=== PATIENT | female | born 1945 | race Caucasian/White ===

== ENCOUNTER 2023-12-23 08:13 | Day surgery (SDC) | payer MEDICARE, OTHER, SELFPAY ==
[2023-12-11 10:33] VITALS: BMI 28.5
--- NOTE | 2023-12-11 14:06 | HPS.HSE ---
Family Physician
-
Family Physician: NOT KNOW UNKNOWN - PT DOES
Chief Complaint
-
Paroxysmal atrial fibrillation.
History of Present Illness
The patient is an 78 year old female presenting today for paroxysmal atrial fibrillation. The patient reports significant palpitations, dyspnea with exertion, lightheadedness, and headaches secondary to this diagnosis. She previously
underwent pulmonary vein isolation in October 2022 for her arrhythmia. She is on current pharmacological therapy with Sotalol. She has been compliant with Eliquis twice a day for oral anticoagulation. She notes that her symptoms associated with her
arrhythmia greatly interfere with her activities of daily living and overall impact her quality of life. She is interested in pursuing pulmonary vein isolation again for further arrhythmia management. She denies any current complaints today such as
chest pain, shortness of breath at rest, nausea, vomiting, diarrhea, dizziness, sore throat, or fever.
Medical History
Past Medical History
Past Medical History: Reports Other
Additional Past Medical History:
1. Paroxysmal atrial fibrillation, status post pulmonary vein isolation 10/2022; pharmacological therapy with Sotalol, oral anticoagulation with Eliquis.
2. Hypertension.
3. Hypercholesterolemia.
4. Coronary artery disease, status post CABG x1 06/2017.
5. Bilateral carotid atherosclerosis without significant stenosis.
6. Nonsustained ventricular tachycardia.
7. Pulmonary hypertension.
8. Severe aortic stenosis, status post aortic valve replacement 06/2017.
9. Venous varicosities, status post varicose vein ligation.
10. Exercise induced asthma.
11. Chronic dry cough.
12. Obstructive sleep apnea, inconsistent with dental appliance.
13. CVA, 09/2009, with residual mild short-term memory loss.
14. Peripheral neuropathy.
15. Uterine prolapse, status post vaginal mesh 2012.
16. Osteopenia.
17. Chronic hyperbilirubinemia.
18. Daily alcohol.
Past Surgical History: Reports Other
Additional Past Surgical History:
1. Pulmonary vein isolation.
2. Aortic valve replacement and CABG x1.
3. Left foot tendon repair and bunionectomy.
4. Varicose vein ligation.
5. Vaginal mesh insertion.
6. Colonoscopy x5.
Social History
Tobacco: Non-smoker
Alcohol: Daily (Reportedly drinks 1 vodka-tonic daily. )
Personal:
Living: Other (She lives with her in a 2 story home. )
Family History
Family History: Not pertinent
Allergies / Home Medications
Allergy/Medication List:
Home medications:
1. Albuterol sulfate 1 puff inhaled twice a day as needed.
2. Amlodipine 2.5 mg p.o. every evening.
3. Atorvastatin 80 mg p.o. every evening.
4. Cholecalciferol 1,000 units p.o. every evening.
5. Eliquis 5 mg p.o. twice a day.
6. Furosemide 20 mg p.o. daily.
7. Magnesium 500 mg p.o. every evening.
8. Potassium gluconate 595 mg p.o. every evening.
9. Pregabalin 75 mg p.o. at bedtime.
10. Sotalol 120 mg p.o. twice a day.
11. Vitamin B complex 1 tablet p.o. daily.
Allergies: No known drug allergies.
Review of Systems
-
A 12 point ROS was completed and negative except as noted: Yes
Physical Exam
Vital Signs
Blood pressure 167/80. Heart rate 63. Respirations 18. Pulse ox 95% on room air.
Height 5 feet, 2 inches. Weight 70.5 kg. BMI 28.4.
Physical Exam
General: Well Developed, Well Nourished and No Apparent Distress
HEENT: NormoCephalic, Moist mucous membranes, Atraumatic and PERRLA
Respiratory: Clear
Cardiac: Regular Rhythm
GI: Soft, Non Tender and Non Distended
Musculoskeletal: Normal Gait & Station
Skin: Warm and Dry
Neuro: AO x 3 and Nonfocal/grossly intact
Laboratory Results
-
DIAGNOSTIC STUDIES as of 12/11/2023: White blood cell count 5.4. Hemoglobin 12.2. Platelet count 165. PT 13.5. INR 1.03. Sodium 139. Potassium 4.7. BUN 20. Creatinine 0.8. Glucose 93. Magnesium 2.1. Total bilirubin 2.9. Calcium 9.6. AST 32. ALT 29.
Albumin 4.3. Blood type A positive.
EKG 12/11/2023: Normal sinus rhythm.
Chest CT 10/03/2022: Normal, conventional pulmonary venous anatomy. No left atrial filling defect/thrombus is identified.
Impression/Plan
-
IMPRESSION/PLAN:
1. Paroxysmal atrial fibrillation: The patient is in need of pulmonary vein isolation with Dr. Riki Reyna on 12/23/2023. The benefits and risks of the procedure have been explained to the patient. The patient understands these risks and
wishes to proceed. She will not be required to undergo a pre-procedural transesophageal echocardiogram as she has been compliant with her home oral anticoagulation. Holding of her home Eliquis and Sotalol before her procedure will be determined by
her surgeon. She will not take any medications the morning of her pulmonary vein isolation.
[2023-12-23] VITALS (13 sets, daily range): BP systolic 113–150; BP diastolic 52–107
[2023-12-23 11:36] LABS: ACT-LR - POC 261 Seconds (116-155)
[2023-12-23 11:55] LABS: ACT-LR - POC 287 Seconds (116-155)
--- NOTE | 2023-12-23 12:46 | ITS.CL.ABL ---
[facility] - Ablation
Ablation
Procedure Report:
ELECTROPHYSIOLOGY ABLATION STUDY
DATE:: December 23, 2023 REFERRING: Dr. Era Tavarez
INDICATION: Paroxysmal supraventricular tachycardia in the form of atrial fibrillation. Prior pulm vein isolation in 2022 with 28 mm cryoballoon
HISTORY: See H and P. As above
ANTIARRHYTHMIC DRUG: Sotalol 120 twice daily
PRE-PROCEDURE TOÑITO: No atrial thrombus
PRESENTING RHYTHM: Sinus rhythm with frequent salvos of atrial fibrillation from the left inferior pulmonary vein
'TIME-OUT': called and confirmed.
SEDATION/ANESTHESIA: provided via the anesthesia department using general anesthesia (LMA).
INTRAVENOUS/ARTERIAL ACCESS:
Right femoral venous - 8Fr
Left femoral venous - 8 Fr, 6 Fr
Ultrasound guidance for bilateral femoral vein access was utilized by me to obtain access with demonstration of normal anatomy
CHADS-VASC Score:
Vascade closure was utilized for the right and left femoral veins
HAS-Bled Score
PROCEDURE:
1. A decapolar CS catheter was placed within the CS for mapping and pacing. This was also used as the reference catheter for the 3-D map.
2. The intracardiac ultrasound catheter was positioned in the RA to identify the FO for targeting of transseptal puncture, assist in identification of the pulmonary vein ostia, monitoring pre and post ablation pulmonary vein flow velocities,
monitoring for 'bubble' formation during RF application as a sign of thermal injury, and to monitor for pericardial effusion during mapping and ablation procedure. Left atrial size, LV ejection fraction, and pulmonary vein flows were monitored
pre and post ablation procedure. The other valves were inspected and found to be free of significant regurgitation or stenosis.
3. Half of the calculated heparin bolus was administered prior to the first transeptal puncture. Transseptal puncture was performed to diagnose RA and LA pressure so that safetey of LA mapping and ablation could be further assessed, and to access
the left atrium and pulmonary veins for mapping and ablation. This entailed advancing the 12 [place] steerable sheath and with dilator needle apparatus into the superior vena cava and withdrawing both (monitoring intracardiac ultrasound, fluoroscopy
and tip pressure) with the tip oriented toward the atrial septum. The fossa ovalis was engaged (indicated by sudden displacement of the sheath tip as well as tenting of the fossa seen on intracardiac ultrasound). Left atrial access required a pass
with the [place] needle extended. Left atrial catheter position was confirmed by pressure monitoring (RA mean pressure 8 mm Hg and LA mean presure 14 mm Hg), LA saturation (99%), as well as fluoroscopy. The sheath was advanced over the
dilator and positioned in the left atrium. The remainder of the calculated heparin bolus was administered and heparin was
infused to maintain ACT at 300 -350 seconds throughout the case.
4. RA pacing was performed via the proximal decapolar poles and LA pacing was performed via the distal decapolr poles.
5. A quadrapolar catheter was first positioned at the His position for His Bundle recording which was tagged via the 3-D Navex sytem, and then passed to the RVA for RV pacing and recording.
6. The multipolar catheter and the pulse select catheter were placed in each of the LIPV, LSPV, RSPV and the RIPV.
7. Next, a 3-D map was created using Navex. A 3-D reconstructed CT image was compared to the 3-D Navex map to assist in anatomic interpretation, mapping and ablation. The CT image and the NavX image were fused.
8. Pulmonary vein and extrapulmonary vein lesions were given. There was focal connection at the posterior sheila of the left inferior pulmonary vein with rapid and frequent salvos of atrial fibrillation earliest in this region of approximately 0.5
cm distal on the sheila. Pulsed field delivery is in this region rendered the vein isolated and there were no further salvos of atrial fibrillation. The posterior wall was then isolated in a sequential fashion with entrance and exit block
confirmed in all 4 pulmonary veins plus the posterior wall. Patient was noninducible for other tachyarrhythmias.
9. Normal sinus node AV edilberto function noted.
TOTAL FLOURO TIME: 12.6 minutes 120 mGy
TOTAL RF DURATION: 0 minutes
REVERSAL OF HEPARIN: 35 mg of protamine, slow IV administration
COMPLICATIONS:
None
Intracardiac US shows no pericardial effusion post ablation.
SUMMARY:
Complex left atrial mapping and ablation.
Reisolation of left inferior pulm vein post left atrial posterior wall isolation
RECOMMENDATIONS:
1. Admit to monitored bed.
2. Resume anticoagulation
3. Out of bed in 2 hours and consider same-day discharge
4. Lower sotalol to 80 mg twice daily
Copy to: Dr. Era Tavarez
[2023-12-23] MEDS: TYLENOL 650 MG PO (13:02)
--- NOTE | 2023-12-23 14:50 | W.PN.UPDATE ---
Update Note
Progress Note Update
Pt seen post PVI. Bilat groin sites with vascade closure, no ht/bleeding, non tender. OOB ambulating, urinating without difficulty. Post EKG NSR 60s, no acute changes. Resume eliquis this evening. Sotalol reduced to 60mg BID. Followup with
[facility] as scheduled. Home later today if groin sites/tele remain stable.
== END 2023-12-23 15:33 | disposition home or self-care (01) ==
LOC: CATH 08:13
PROVIDERS: ATTENDING PHYSICIAN Internal Medicine Cardiovascular Disease; FAMILY PHYSICIAN Family Medicine; OTHER PHYSICIAN Internal Medicine Cardiovascular Disease
DX: I48.0 Paroxysmal atrial fibrillation (principal); Z79.899 Other long term (current) drug therapy; R00.2 Palpitations; R51.9 Headache, unspecified; R42 Dizziness and giddiness; R06.09 Other forms of dyspnea; I10 Essential (primary) hypertension; G47.33 Obstructive sleep apnea (adult) (pediatric); I25.10 Atherosclerotic heart disease of native coronary artery without angina pectoris; I27.20 Pulmonary hypertension, unspecified; E78.00 Pure hypercholesterolemia, unspecified; M85.80 Other specified disorders of bone density and structure, unspecified site; Z79.01 Long term (current) use of anticoagulants; Z95.1 Presence of aortocoronary bypass graft; Z95.2 Presence of prosthetic heart valve; I35.0 Nonrheumatic aortic (valve) stenosis; G62.9 Polyneuropathy, unspecified; J45.990 Exercise induced bronchospasm; I83.90 Asymptomatic varicose veins of unspecified lower extremity; N81.4 Uterovaginal prolapse, unspecified; E80.6 Other disorders of bilirubin metabolism; I69.811 Memory deficit following other cerebrovascular disease
CPT/HCPCS: C1732; C1733; C1894; C1730; C1769; C1892; C1759; 76937; 85347; 93005; 93656; C1760

== ENCOUNTER → 2023-12-30 08:05 | Outpatient (REF) | payer MEDICARE, OTHER, SELFPAY | LOC: EMG 08:05 | PROVIDERS: ATTENDING PHYSICIAN Physician Assistant; FAMILY PHYSICIAN Family Medicine | DX: M79.672 Pain in left foot (principal); M79.671 Pain in right foot; M54.16 Radiculopathy, lumbar region; R20.0 Anesthesia of skin | CPT/HCPCS: 95886; 95911 ==